=== PATIENT | male | born 1975 | race African-American/Black ===

== ENCOUNTER 2021-08-22 21:08 | Emergency (ER) | payer SELFPAY | END 2021-08-22 21:40 | LOC: ERS 21:08 | DX: S01.01XA Laceration without foreign body of scalp, initial encounter (principal); S01.81XA Laceration without foreign body of other part of head, initial encounter; F17.220 Nicotine dependence, chewing tobacco, uncomplicated; W22.8XXA Striking against or struck by other objects, initial encounter | CPT/HCPCS: 99283 ==